=== PATIENT | male | born 1965 | race Caucasian/White ===

== ENCOUNTER 2023-06-22 21:14 | Observation (INO) | payer OTHER ==
[~2023-06-22] VITALS: Ht 188 cm; Wt 127.0 kg
[2023-06-22 21:18] VITALS: BP 116/79; PULSE 107; RESP 18; TEMP 98.1; O2SAT 93
[2023-06-22] MEDS ORDERED: ZOSYN 3.375 GM 3.375 GM in NS 100ML 100 ML IV STA (21:51)
[2023-06-22] MEDS ORDERED: VANCOMYCIN 1.5 GM/300 ML BAG 300 ML IV STA (21:51)
[2023-06-22 21:59] LABS: BASOPHIL # 0.1 10^3/uL (0.0-0.1); BASOPHIL % 0.5 % (0.0-0.2); EOSINOPHIL # 0.1 10^3/uL (0.0-0.2); HEMATOCRIT(ML) 50.1 % (37.0-53.0); HEMOGLOBIN 16.1 g/dL (13.9-16.3); LYMPHOCYTES # 2.45 10^3/uL1 (1.0-4.8); LYMPHOCYTES % 23.7 % (24.0-44.0); MEAN CORP HGB 31.1 pg (26-34); MEAN CORP HGB CONCENTRATION 32.1 g/dL (33-36.5); MEAN CORP VOLUME 96.7 fL (78-100); MONOCYTES # 0.6 10^3/uL (0.3-0.8); MONOCYTES % 6.2 % (5.0-12.0); NEUTROPHIL # 7.1 10^3/uL (1.8-7.7); NEUTROPHILS % 68.4 % (41.0-85.0); PLATELET COUNT 264 10^3/uL (150-400); RED BLOOD CELL 5.18 10^6/uL (4.50-5.90); RED CELL DISTRIBUTION WIDTH 14.1 % (11.5-14.5); WHITE BLOOD CELL 10.3 10^3/uL (4.5-11.0)
[2023-06-22 22:00] LABS: +ADD MANUAL DIFF(NO CHRG) NO
[2023-06-22] MEDS ORDERED: NS 100ML 100 ML IV ONE (22:08)
[2023-06-22 22:09] LABS: PROTHROMBIN PROTIME 10.4 SEC (9.7-11.6)
[2023-06-22 22:15] VITALS: BP 125/66; PULSE 95; RESP 18; O2SAT 93
[2023-06-22 22:21] LABS: ALBUMIN(ML) 3.4 g/dL (3.4-5.0); ALBUMIN/GLOBULIN RATIO 0.809; ANION GAP 11.3; CALCIUM 9.4 mg/dL (8.4-10.5); CARBON DIOXIDE 28.1 mmol/L (20.0-32); CREATININE SERUM 1.45 mg/dL (0.59-1.40); POTASSIUM 4.4 mmol/L (3.6-5.2)
[2023-06-22] MEDS ORDERED: VANCOMYCIN 1.5 GM/300 ML BAG 300 ML IV ONE (22:43)
[2023-06-22] MEDS ORDERED: NS 1000ML 1,000 ML IV STA (22:51)
[2023-06-22] MEDS ORDERED: NS 1000ML 1,000 ML STA (22:51)
[2023-06-22] MEDS ORDERED: TAMS-14 PO (23:15)
[2023-06-22] MEDS ORDERED: NORT25CA PO (23:15)
[2023-06-22] MEDS ORDERED: LISI40TA10 PO (23:15)
[2023-06-22] MEDS ORDERED: SILD50TA PO (23:15)
[2023-06-22] MEDS ORDERED: OMEP20CA19 PO (23:15)
[2023-06-22] MEDS ORDERED: HYDR25TA9 PO (23:15)
[2023-06-22] MEDS ORDERED: METO100T7 PO (23:15)
[2023-06-22 23:18] VITALS: BP 125/80; PULSE 84; RESP 18; O2SAT 96
[2023-06-23] MEDS ORDERED: TYLENOL PO PRN (00:30)
[2023-06-23] MEDS ORDERED: MORPHINE SULFATE IV PRN (00:30)
[2023-06-23] MEDS ORDERED: ZOFRAN IV PRN (00:30)
[2023-06-23 01:33] VITALS: BP 125/72; PULSE 89; RESP 18; O2SAT 96
[2023-06-23] MEDS ORDERED: ROCEPHIN ONE (02:10)
[2023-06-23] MEDS ORDERED: NS 100ML 100 ML IV ONE (02:10)
[2023-06-23] MEDS: ROCEPHIN 1,000 MG in NS 100ML 100 ML IV SCH (02:15)
[2023-06-23] MEDS ORDERED: NS 1000ML 1,000 ML ONE (04:17)
[2023-06-23 05:02] VITALS: BP 110/59; PULSE 100; RESP 20; TEMP 97.6; O2SAT 97
[2023-06-23 07:10] VITALS: BP 114/72; PULSE 92; RESP 20; TEMP 98.4; O2SAT 94
[2023-06-23] MEDS ORDERED: ASPIRIN EC PO ONE (07:58)
[2023-06-23] MEDS ORDERED: VANCOMYCIN HCL 1 GM ONE (07:59)
[2023-06-23] MEDS: ASPIRIN EC PO SCH (08:00)
[2023-06-23] MEDS ORDERED: NS 250ML 250 ML ONE (08:20)
[2023-06-23] MEDS ORDERED: VANCOMYCIN HCL 1 GM in NS 250ML 250 ML IV SCH ×2 (09:00)
[2023-06-23 11:29] VITALS: BP 142/87; PULSE 91; RESP 22; TEMP 98.3; O2SAT 96
[2023-06-23 15:33] VITALS: BP 138/87; PULSE 93; RESP 20; TEMP 98.1; O2SAT 98
[2023-06-23] MEDS: LACTATED RINGERS 1,000 ML IV SCH (16:08)
[2023-06-23] MEDS: FLOMAX PO SCH (17:21)
[2023-06-23] MEDS: LOPRESSER PO SCH ×2 (17:22→20:49)
[2023-06-23 20:20] VITALS: BP 119/74; PULSE 83; RESP 20; TEMP 98.3; O2SAT 93
[2023-06-23] MEDS: VANCOMYCIN 1 GRAM/200 ML BAG 200 ML IV SCH (20:49)
[2023-06-23] MEDS ORDERED: PAMELOR PO SCH (21:00)
[2023-06-24] MEDS: ROCEPHIN 1,000 MG in NS 100ML 100 ML IV SCH (00:31)
[2023-06-24 00:39] VITALS: BP 115/67; PULSE 82; RESP 18; TEMP 98.4; O2SAT 90
[2023-06-24 04:00] VITALS: BP 117/74; PULSE 77; RESP 18; TEMP 98.4; O2SAT 95
[2023-06-24] MEDS: LACTATED RINGERS 1,000 ML IV SCH (06:02)
[2023-06-24 06:12] LABS: BASOPHIL # 0.1 10^3/uL (0.0-0.1); BASOPHIL % 0.6 % (0.0-0.2); EOSINOPHIL # 0.1 10^3/uL (0.0-0.2); EOSINOPHIL % 1.1 % (0.0-5.0); HEMATOCRIT(ML) 47.7 % (37.0-53.0); HEMOGLOBIN 15.2 g/dL (13.9-16.3); LYMPHOCYTES # 2.42 10^3/uL1 (1.0-4.8); LYMPHOCYTES % 23.1 % (24.0-44.0); MEAN CORP HGB 31.3 pg (26-34); MEAN CORP HGB CONCENTRATION 31.9 g/dL (33-36.5); MEAN CORP VOLUME 98.1 fL (78-100); MONOCYTES # 0.7 10^3/uL (0.3-0.8); MONOCYTES % 6.3 % (5.0-12.0); NEUTROPHIL # 7.2 10^3/uL (1.8-7.7); NEUTROPHILS % 68.4 % (41.0-85.0); PLATELET COUNT 248 10^3/uL (150-400); RED BLOOD CELL 4.86 10^6/uL (4.50-5.90); RED CELL DISTRIBUTION WIDTH 14.1 % (11.5-14.5); WHITE BLOOD CELL 10.5 10^3/uL (4.5-11.0)
[2023-06-24 06:25] LABS: +ADD MANUAL DIFF(NO CHRG) NO; ANION GAP 10.9; CALCIUM 9.2 mg/dL (8.4-10.5); CREATININE SERUM 1.07 mg/dL (0.59-1.40); POTASSIUM 4.9 mmol/L (3.6-5.2)
[2023-06-24 07:09] VITALS: BP 131/78; PULSE 91; RESP 19; TEMP 98.5; O2SAT 93
[2023-06-24] MEDS: FLOMAX PO SCH (08:06)
[2023-06-24] MEDS: VANCOMYCIN 1 GRAM/200 ML BAG 200 ML IV SCH (08:06)
[2023-06-24] MEDS: LOPRESSER PO SCH (08:06)
[2023-06-24] MEDS: ASPIRIN EC PO SCH (08:06)
[2023-06-24] MEDS ORDERED: PROTONIX PO SCH (09:00)
[2023-06-24] MEDS ORDERED: CLIN300C3 PO (09:32)
[2023-06-24 11:02] VITALS: BP 114/67; PULSE 62; RESP 19; TEMP 97.9; O2SAT 95
[2023-06-24 11:18] VITALS: BP 114/67; PULSE 62; RESP 19; TEMP 97.9; O2SAT 95
[2023-06-24] MEDS ORDERED: VANCOMYCIN 1.75 GM/350 ML IV SCH (16:00)
== END 2023-06-24 11:15 | disposition home or self-care (01) ==
LOC: ER 21:14 → MS 22:55 → EDBEDREQSVC 23:06 → EDBEDREQ 23:06
PROVIDERS: ADMIT Hospitalist; ATTEND Hospitalist
DX: L03.116 Cellulitis of left lower limb (principal); L03.115 Cellulitis of right lower limb; N17.9 Acute kidney failure, unspecified; E86.0 Dehydration; I10 Essential (primary) hypertension; N40.0 Benign prostatic hyperplasia without lower urinary tract symptoms; E66.9 Obesity, unspecified; E78.00 Pure hypercholesterolemia, unspecified; K21.9 Gastro-esophageal reflux disease without esophagitis; Z79.899 Other long term (current) drug therapy; Z68.35 Body mass index [BMI] 35.0-35.9, adult
CPT/HCPCS: 96365; 96361 ×2; 99285; 73590 ×2; 80053; 85025 ×2; 36415 ×2; 87040 ×2; 83605; 85610; 85730; 96367; 96366 ×2; 93970; 93005; 80048; G0378 ×35; A9270; J7030 ×2; J3370 ×4; J2543; A6210 ×2; A6212; J7050 ×3; J7120 ×2; J0696 ×3; J3490

== ENCOUNTER 2024-07-20 09:22 | Emergency (ER) | payer OTHER ==
[~2024-07-20] VITALS: Ht 188 cm; Wt 136.1 kg
[~2024-07-20 09:22] MED LIST: CLIN300C3 PO; HYDR25TA9 PO; LISI40TA10 PO; METO100T7 PO; NORT25CA PO; OMEP20CA19 PO; SILD50TA PO; TAMS-14 PO
[2024-07-20 09:31] VITALS: BP 132/98; PULSE 86; RESP 18; TEMP 98.6; O2SAT 92
[2024-07-20] MEDS ORDERED: TORADOL ONE (09:48)
[2024-07-20] MEDS ORDERED: KETO10TA PO (09:50)
[2024-07-20] MEDS: TORADOL IM STA (09:53)
[2024-07-20 09:54] VITALS: BP 132/86; PULSE 80; RESP 18; O2SAT 95
== END 2024-07-20 09:54 | disposition home or self-care (01) ==
LOC: ER 09:22
DX: M72.2 Plantar fascial fibromatosis (principal); E78.00 Pure hypercholesterolemia, unspecified; I10 Essential (primary) hypertension; K21.9 Gastro-esophageal reflux disease without esophagitis; M10.9 Gout, unspecified; Z90.49 Acquired absence of other specified parts of digestive tract
CPT/HCPCS: 99283; 96372; J1885